=== PATIENT | female | born 2000 | race African-American/Black ===

== ENCOUNTER 2018-12-29 16:11 | Emergency (ER) | payer MEDICAID ==
[~2018-12-29] VITALS: Ht 170.2 cm; Wt 82.0 kg
[2018-12-29] MEDS ORDERED: PREN-170 PO (16:21)
[2018-12-29] MEDS ORDERED: ACETAMINOPHEN 325MG TABLET PO ONE (17:00)
[2018-12-29 17:48] LABS: CLARITY URINE CLOUDY (CLEAR); COLOR URINE YELLOW (YELLOW); KETONES URINE TRACE (NEGATIVE); LEUKOCYTE ESTERASE URINE 1+ (NEGATIVE); NITRITE URINE NEGATIVE (NEGATIVE); OCCULT BLOOD URINE NEGATIVE (NEGATIVE); PH URINE 6.5 (4.5-8.0); PROTEIN URINE TRACE (NEGATIVE); SPECIFIC GRAVITY URINE 1.026 (1.005-1.030)
[2018-12-29 19:59] VITALS: BP 122/68
== END 2018-12-29 20:00 | disposition home or self-care (01) ==
LOC: ER 16:55
DX: O9A.211 Injury, poisoning and certain other consequences of external causes complicating pregnancy, first trimester (principal); O23.41 Unspecified infection of urinary tract in pregnancy, first trimester; S80.02XA Contusion of left knee, initial encounter; Z3A.13 13 weeks gestation of pregnancy; G89.29 Other chronic pain; Z98.890 Other specified postprocedural states; W22.12XA Striking against or struck by front passenger side automobile airbag, initial encounter; Y93.I9 Activity, other involving external motion; Y92.89 Other specified places as the place of occurrence of the external cause; Y99.8 Other external cause status
CPT/HCPCS: 76801; 81025; 99284

== ENCOUNTER 2019-01-01 18:47 | Emergency (ER) | payer MEDICAID ==
[~2019-01-01] VITALS: Ht 167.6 cm; Wt 81.0 kg
[~2019-01-01 18:47] MED LIST: PREN-170 PO
[2019-01-01] MEDS ORDERED: SODIUM CHLORIDE 0.9% 1,000 ML IV ONE (19:59)
[2019-01-01] MEDS ORDERED: ACETAMINOPHEN 325MG TABLET PO PRN (20:00)
[2019-01-01] MEDS ORDERED: ONDANSETRON 4MG ODT PO ONE (20:00)
[2019-01-01 20:51] LABS: CLARITY URINE CLEAR (CLEAR); COLOR URINE YELLOW (YELLOW); KETONES URINE NEGATIVE (NEGATIVE); LEUKOCYTE ESTERASE URINE 3+ (NEGATIVE); NITRITE URINE NEGATIVE (NEGATIVE); OCCULT BLOOD URINE TRACE (NEGATIVE); PROTEIN URINE NEGATIVE (NEGATIVE); SPECIFIC GRAVITY URINE 1.005 (1.005-1.030)
[2019-01-01 21:08] LABS: BASOPHILS % 0.5 % (0.0-2.0); EOSINOPHILS % 0.5 % (0.0-5.0); HEMATOCRIT. 33.4 % (36.0-48.0); HEMOGLOBIN. 11.4 g/dL (12.0-16.0); LYMPHOCYTES % 15.7 % (20.0-50.0); MEAN CORPUSCULAR HEMOGLOBIN 28.6 pg (28.0-32.0); MEAN CORPUSCULAR VOLUME 83.4 fL (81.0-99.0); MEAN PLATELET VOLUME 7.9 fl (7.4-10.4); MONOCYTES % 7.3 % (2.0-8.0); PLATELET 307 x1000/uL (130-400)
[2019-01-01 21:11] LABS: CHLORIDE 108 mEq/L (98-107)
[2019-01-01 21:34] LABS: B-HCG QUANTITATIVE 58392 mIU/mL (<3)
[2019-01-01 22:22] VITALS: BP 109/69
== END 2019-01-02 02:15 | disposition home or self-care (01) ==
LOC: ER 18:47
DX: O23.32 Infections of other parts of urinary tract in pregnancy, second trimester (principal); O26.892 Other specified pregnancy related conditions, second trimester; Z3A.14 14 weeks gestation of pregnancy; R51 Headache
CPT/HCPCS: 36415; 76801; 76817; 80053; 81003; 81025; 84484; 84702; 85025; 86850; 86900; 86901; 96360; 96361; 99284; J7030; Q0162